=== PATIENT | male | born 1990 | race Caucasian/White ===

== ENCOUNTER 2017-06-16 19:38 | Emergency (ER) | payer OTHER ==
[2017-06-16] MEDS: ONDANSETRON (ODT) 4 MG TAB ODT (20:55)
[2017-06-16] MEDS: HYDROCODONE/APAP (5/325) TAB PO (20:55)
== END 2017-06-16 22:18 | disposition home or self-care (01) ==
LOC: FTE 19:38
DX: R10.30 Lower abdominal pain, unspecified (principal); R11.2 Nausea with vomiting, unspecified; R19.7 Diarrhea, unspecified
CPT/HCPCS: 99283; Z7610

== ENCOUNTER 2018-01-08 17:05 | Emergency (ER) | payer OTHER ==
[2018-01-08] MEDS: NAPROXEN 500 MG TAB PO (18:35)
== END 2018-01-08 18:53 | disposition home or self-care (01) ==
LOC: FTE 17:05
DX: M54.5 Low back pain (principal)
CPT/HCPCS: 99283; Z7502

== ENCOUNTER 2018-06-05 19:58 | Emergency (ER) | payer OTHER ==
[2018-06-05 22:37] LABS: ADD MAN DIFF? NO
[2018-06-05 22:39] LABS: WHITE BLOOD COUNT 10.2 10^3/ul (4.8-10.8)
[2018-06-05 22:39] LABS: BASOPHILS % 0.3 % (0.0-2.0); EOSINOPHILS # 0.3 10^3/ul (0.0-0.5); EOSINOPHILS % 3.2 % (0.0-7.0); HEMATOCRIT 46.1 % (42.0-52.0); HEMOGLOBIN 15.9 g/dl (14.0-18.0); LYMPHOCYTES # 2.8 10^3/ul (0.8-2.9); LYMPHOCYTES % 27.7 % (15.0-51.0); MEAN CORPUSCULAR HEMOGLOBIN 30.1 pg (29.0-33.0); MEAN CORPUSCULAR HGB CONC 34.5 g/dl (32.0-37.0); MEAN CORPUSCULAR VOLUME 87.3 fl (82.0-101.0); MEAN PLATELET VOLUME 10.3 fl (7.4-10.4); MONOCYTE # 0.8 10^3/ul (0.3-0.9); MONOCYTES % 7.3 % (0.0-11.0); NEUTROPHIL # 6.3 10^3/ul (1.6-7.5); NEUTROPHILS % 61.2 % (39.0-77.0); PLATELET COUNT 272 10^3/UL (140-415); RED BLOOD COUNT 5.28 10^6/ul (4.70-6.10); RED CELL DISTRIBUTION WIDTH 13.2 % (11.5-14.5)
[2018-06-05 22:47] LABS: ADD UMIC NO; UR ASCORBIC ACID NEGATIVE (NEGATIVE); UR BILIRUBIN (Dip) NEGATIVE (NEGATIVE); UR BLOOD (Dip) NEGATIVE (NEGATIVE); UR CLARITY CLEAR (CLEAR); UR COLOR YELLOW (YELLOW); UR GLUCOSE (Dip) NEGATIVE (NEGATIVE); UR KETONES (Dip) NEGATIVE (NEGATIVE); UR LEUKOCYTE ESTERASE (Dip) NEGATIVE Leu/ul (NEGATIVE); UR NITRITE (Dip) NEGATIVE (NEGATIVE); UR SPECIFIC GRAVITY (Dip) 1.014 (1.003-1.030); UR TOTAL PROTEIN (Dip) NEGATIVE (NEGATIVE); UR UROBILINOGEN (Dip) 1+ mg/dL (NEGATIVE)
[2018-06-05 22:58] LABS: ALANINE AMINOTRANSFERASE 40 IU/L (13-69); ALBUMIN 4.2 g/dl (3.3-4.9); ALBUMIN/GLOBULIN RATIO 1.75; ALKALINE PHOSPHATASE 65 IU/L (42-121); ANION GAP 8 (5-13); ASPARTATE AMINO TRANSFERASE 35 IU/L (15-46); BILIRUBIN,INDIRECT 0.6 mg/dl (0-1.1); BILIRUBIN,TOTAL 0.6 mg/dl (0.2-1.3); BLOOD UREA NITROGEN 14 mg/dl (7-20); CALCIUM 8.7 mg/dl (8.4-10.2); CARBON DIOXIDE 30 mmol/L (21-31); CHLORIDE 100 mmol/L (97-110); CREATININE 1.16 mg/dl (0.61-1.24); Estimated GFR > 60 mL/min (>60); GLUCOSE 96 mg/dl (70-220); LIPASE 64 U/L (23-300); POTASSIUM 3.9 mmol/L (3.5-5.1); SODIUM 138 mmol/L (135-144); TOTAL PROTEIN 6.6 g/dl (6.1-8.1)
== END 2018-06-06 00:38 | disposition home or self-care (01) ==
LOC: FTE 06-06 00:38
DX: R30.0 Dysuria (principal)
CPT/HCPCS: 36415; 74176; 80053; 81003; 83690; 85025; 87086; 87591; 99284-25

== ENCOUNTER 2018-11-17 20:43 | Emergency (ER) | payer SELFPAY, OTHER | END 2018-11-18 01:00 | disposition left against medical advice (07) | LOC: FTE 20:43 | DX: Z53.21 Procedure and treatment not carried out due to patient leaving prior to being seen by health care provider (principal) ==

== ENCOUNTER 2018-11-18 19:31 | Emergency (ER) | payer OTHER | END 2018-11-18 20:55 | disposition home or self-care (01) | LOC: FTE 20:55 | DX: R05 Cough (principal) | CPT/HCPCS: 71046; 99283 ==

== ENCOUNTER 2019-02-27 18:56 | Emergency (ER) | payer OTHER | END 2019-02-27 21:59 | disposition home or self-care (01) | LOC: FTE 18:56 | DX: S49.92XA Unspecified injury of left shoulder and upper arm, initial encounter (principal); X58.XXXA Exposure to other specified factors, initial encounter; Y92.89 Other specified places as the place of occurrence of the external cause | CPT/HCPCS: 73030; 99283-25 ==